=== PATIENT | female | born 1955 | race Asian ===

== ENCOUNTER 2019-02-15 07:17 | Emergency (ER) | payer SELFPAY ==
[~2019-02-15] VITALS: Ht 149.9 cm; Wt 52.0 kg
[2019-02-15] MEDS ORDERED: NAPR220C15 PO (07:20)
[2019-02-15 08:42] VITALS: BP 136/87
== END 2019-02-15 08:49 | disposition home or self-care (01) ==
LOC: EMS 07:18
DX: S46.012A Strain of muscle(s) and tendon(s) of the rotator cuff of left shoulder, initial encounter (principal); X50.0XXA Overexertion from strenuous movement or load, initial encounter; Y93.89 Activity, other specified; Y92.89 Other specified places as the place of occurrence of the external cause; Y99.8 Other external cause status

== ENCOUNTER 2019-03-16 10:34 | Emergency (ER) | payer BC ==
[~2019-03-16] VITALS: Ht 152.4 cm; Wt 53.6 kg
[~2019-03-16 10:34] MED LIST: NAPR220C15 PO
[2019-03-16 13:08] VITALS: BP 131/76
== END 2019-03-16 13:08 | disposition home or self-care (01) ==
LOC: EMS 10:36
DX: B37.9 Candidiasis, unspecified (principal); M19.90 Unspecified osteoarthritis, unspecified site